=== PATIENT | male | born 1970 | race Caucasian/White ===

== ENCOUNTER 2024-01-23 04:46 | Day surgery (SDC) | payer OTHER ==
[2024-01-17 13:49] VITALS: BMI 27.0
[2024-01-23] MEDS ORDERED: LIDOCAINE HCL 2% JELLY 11 ML TP ONE (10:26)
[2024-01-23 11:20] VITALS: TEMP 98.4
[2024-01-23 12:26] VITALS: BP 119/70; PULSE 56; RESP 18
== END 2024-01-23 11:50 | disposition home or self-care (01) ==
LOC: JASU-ENDO 04:46
PROVIDERS: ATTEND Internal Medicine Gastroenterology
PROC: 0DBN8ZX Excision of Sigmoid Colon, Via Natural or Artificial Opening Endoscopic, Diagnostic (ICD-10-PCS; 2024-01-23)
PROC: 0DBM8ZX Excision of Descending Colon, Via Natural or Artificial Opening Endoscopic, Diagnostic (ICD-10-PCS; principal; 2024-01-23 09:30)
DX: Z12.11 Encounter for screening for malignant neoplasm of colon (principal); D12.4 Benign neoplasm of descending colon; D12.5 Benign neoplasm of sigmoid colon
CPT/HCPCS: 88305-TC